=== PATIENT | male | born 1985 | race Two or more races ===

== ENCOUNTER 2022-05-19 18:03 | Emergency (ER) | payer MEDICAID, OTHER ==
[~2022-05-19] VITALS: Ht 162.6 cm; Wt 63.6 kg
[2022-05-19 18:12] VITALS: BP 124/84
== END 2022-05-20 01:55 | disposition left against medical advice (07) ==
LOC: EDBD 18:03 → ER 18:04
DX: F91.9 Conduct disorder, unspecified (principal); Z76.0 Encounter for issue of repeat prescription; Z53.21 Procedure and treatment not carried out due to patient leaving prior to being seen by health care provider